=== PATIENT | female | born 1945 | race Caucasian/White ===

== ENCOUNTER → 2017-08-26 | Day surgery (SDC) | payer MEDICARE, BC ==
[2017-08-24 09:40] VITALS: BMI 27.4
[~2017-08-26] MED LIST: EPINEPHrine 1 MG/ML 1 ML AMP SQ ONE; LACTATED RINGERS 1,000 ML IV SCH; LIDOCAINE 1% 20 ML VIAL (10MG/ML) FOR IV START INTRADERMA ONE; MIDAZOLAM 2 MG/2 ML VIAL IV PRN; MIDAZOLAM 2 MG/2 ML VIAL ONE; OFLOXACIN 0.3% OPHTH DROPS 5 ML BOTTLE LEFT EAR ONE; PROPOFOL 10 MG/ML 20 ML VIAL IV ONE; Pre Op ABX Message 1 EACH MISC MISCELLANE ONE; fentaNYL (PF) 50 MCG/ML 2 ML AMP IV PRN
--- NOTE | 2017-08-26 06:15 | HP ---
HISTORY AND PHYSICAL CHIEF COMPLAINT: Fluid in the left ear. HISTORY OF PRESENT ILLNESS: This patient is a 71-year-old female who was originally seen in my office complaining of having a plugged sensation in her left ear. At the time that she was seen in my office, the patient was complaining having pressure in the left ear as well as pressure in her sinuses. Clinical examination of the ears revealed that the left middle ear space contained fluid. The patient was placed on a course of oral antibiotics and oral steroids and was seen back approximately 2 weeks later. At that time, she stated that the left ear still felt plugged. She was given another 10-day course of oral steroids and asked to return to the office. At the time that the patient returned to the office, she stated that the ear had not improved and clinical examination revealed that the patient had left chronic serous otitis media so-called glue ear. It was recommended that she undergo a left myringotomy with insertion of a ventilation tube under IV sedation with MAC or general anesthesia depending upon the anesthesia department's preference. PAST MEDICAL HISTORY: Past medical history reveals that the patient has allergies to PENICILLIN, SULFA and CODEINE. MEDICATIONS: Current medications include Synthroid, Travatan, Simbrinza, Dyazide, atorvastatin, Nasonex, Advair, and Claritin. REVIEW OF SYSTEMS: Cardiovascular is positive for hypertension. Respiratory is positive for asthma. Gastrointestinal is negative. Metabolic endocrine is positive for hypercholesterolemia and hypothyroidism. Special senses is positive for glaucoma. The remainder of the review of systems is essentially unremarkable. PHYSICAL EXAMINATION: This patient is a very pleasant 71-year-old female who was alert and cooperative. HEENT EXAMINATION: The patient is normocephalic. Right tympanic membrane is normal. Right middle ear space is free of any fluid or infection. The left tympanic membrane is dull with evidence of fluid in the left middle ear space. Pupils are equal, round, react to light and accommodation. Extraocular movements within normal limits. Intranasal examination reveals moderate to severe septal deviation with compensatory hypertrophy of the inferior turbinates and a moderate amount of thick mucus on the mucous membranes and draining down the posterior pharynx. Examination of oropharynx, palpation of the neck, cranial nerves 2 through 12 and the remainder of the head and neck exam are within normal limits. CHEST/CARDIOVASCULAR: Both lung pittman are clear to percussion and auscultation. The patient is in regular sinus rhythm S1, S2 are present without evidence any murmurs, S3s or S4s. Peripheral pulses are bilaterally symmetrical and within normal limits. ABDOMEN: There is no evidence the masses, megaly or tenderness. The abdomen is soft. Skin is unremarkable. Musculoskeletal and neurological are within normal limits. PELVIC/RECTAL EXAM; The pelvic rectal exam is deferred at this time because the patient has this done on a regular basis at her family physician's office. The remainder of the physical exam is essentially unremarkable. IMPRESSION: Chronic left serous otitis media. PLAN: The patient is scheduled to undergo a left myringotomy with insertion of ventilation tube under IV sedation or general anesthesia depending upon the anesthesia department's preference. ATTENTION RNS IN THE PRE-SURGICAL AREA: I have not ordered any pre-surgical prophylactic antibiotics for this patient. If the pharmacy department sends any pre- surgical prophylactic antibiotics to the pre-surgical area for this patient, please cancel that order and return the medication to the pharmacy department. Also please make sure that the patient's account is credited appropriately. I have discussed the risks, benefits and alternative therapies for the above-mentioned procedure and for both sedation/analgesia as well as necessary blood product administration, if indicated, as they pertain to this patient. The patient has indicated his or her understanding and acceptance of the risks and procedures discussed. MMODL / IJN: [id number] /
[2017-08-26 09:04] VITALS: TEMP 97.9
[2017-08-26 11:34] VITALS: BP 132/62; PULSE 82; RESP 16
--- NOTE | 2017-08-28 20:33 | OP ---
OPERATIVE REPORT DATE OF SURGERY: 08/26/2017 PREOP DIAGNOSIS: Chronic left serous otitis media with occluded retained ventilation tube. POSTOPERATIVE DIAGNOSIS: Chronic left serous otitis media with occluded retained ventilation tube. ANESTHESIA: IV sedation with MAC. OPERATIVE PROCEDURE: Left myringotomy with insertion of a Fried type ventilation tube. OPERATING SURGEON: Dr. Betancur. COMPLICATIONS: None. PROCEDURE: The patient was placed on the operating table in supine position. After uneventful induction and IV sedation, satisfactory sedation was obtained. Next the patient's left ear was prepped in the usual and customary fashion. Next, using the Zeiss operating microscope and a #2 aural speculum, the left external auditory canal was cleansed of all wax and debris. The procedure was somewhat difficult because the patient's left external auditory canal was quite stenotic, therefore necessitating the use of a much smaller speculum much small aural speculum in usual. Inspection revealed that the old ventilation tube was present, but it was completely occluded with cerumen. Therefore, using the myringotomy knife. This tube was eventually freed from the surrounding tympanic membrane. Next, using a pair of alligator forceps, the old occluded ventilation tube was removed without incident. The middle ear space was suctioned free of all fluid. Next using the myringotomy knife, the residual perforation was enlarged in the anterior inferior quadrant of the left tympanic membrane. Next, a Fried type ventilation tube was carefully inserted in the usual and customary fashion. Again, this procedure took a little bit longer than normal because of the fact that all of the operation was carried out through a much smaller aural speculum, namely #2 instead of the usual #3. The tube was put in position in the usual fashion. The middle ear space was once again suctioned to make sure that all the fluid had been removed. The patient's left external auditory canal was filled with approximately 10 drops of Floxin and otic solution. At this point, the procedure was terminated. There were no intraoperative complications. The patient tolerated the procedure well and was returned to the recovery room in satisfactory condition. MMODL / IJN: [id number] /
== END ==
LOC: OR 08:36
PROVIDERS: ATTEND Otolaryngology
DX: H65.22 Chronic serous otitis media, left ear (principal); T85.9XXA Unspecified complication of internal prosthetic device, implant and graft, initial encounter; Q16.1 Congenital absence, atresia and stricture of auditory canal (external); I10 Essential (primary) hypertension; J45.909 Unspecified asthma, uncomplicated; E78.00 Pure hypercholesterolemia, unspecified; E03.9 Hypothyroidism, unspecified; E78.5 Hyperlipidemia, unspecified; M06.9 Rheumatoid arthritis, unspecified; H40.9 Unspecified glaucoma; Z79.82 Long term (current) use of aspirin; Z79.51 Long term (current) use of inhaled steroids; Z79.899 Other long term (current) drug therapy; Z88.5 Allergy status to narcotic agent; Z88.0 Allergy status to penicillin; Z88.2 Allergy status to sulfonamides; Z88.1 Allergy status to other antibiotic agents
CPT/HCPCS: 69436; J2250; J2704

== ENCOUNTER → 2017-11-10 | Outpatient (CLI) | payer MEDICARE, BC ==
--- NOTE | 2017-11-10 16:13 | CT ---
EXAMINATION TYPE: CT iac wo con DATE OF EXAM: 11/10/2017 COMPARISON: Correlation CT brain 04/24/2017 HISTORY: 72-year-old female with left side hearing loss and mastoiditis. CT DLP: 257 mGycm Automated exposure control for dose reduction was used. TECHNIQUE: Contiguous high-resolution axial scanning of the temporal bones without IV contrast. Nelda nal reformatted images are obtained. FINDINGS: There is no abnormality of visualized intracranial structures by thin section noncontrast CT. The external auditory canals are clear. There is a myringotomy tube within the left tympanic membrane . Minimal thickening of the tympanic membrane likely postinflammatory. The middle ear cavities are well pneumatized with interval clearance as compared to 04/24/2017. The mastoid air cells are well pneumatized. There is no abnormality of middle ear ossicles. The round and oval windows are normal. There is no abnormality of bony labyrinths. The vestibular aqueduct are well visualized. The facial nerve canal is normal bilaterally. The internal auditory canal and meati are symmetrical bilaterally. There is no evidence of fractures. Severe chronic opacification of the bilateral maxillary sinuses as well as the ethmoid and sphenoid s inuses with reactive will-osteogenesis of the sinus melton. Old, minimally depressed left-sided nasal b one fracture. Reformatted images confirm above findings. IMPRESSION: 1. Minimally thickened left tympanic membrane likely postinflammatory in etiology. Left-sided myringo marin tube is in place. 2. Interval clearing of the left middle ear effusion. The mastoid air cells remain clear. 3. 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
== END | disposition home or self-care (01) ==
LOC: RADCTMAIN 15:17
PROVIDERS: ATTEND Otolaryngology
DX: H93.8X2 Other specified disorders of left ear (principal); Z98.890 Other specified postprocedural states
CPT/HCPCS: 70480

== ENCOUNTER 2018-04-27 10:21 | Day surgery (SDC) | payer MEDICARE, BC ==
[2018-04-26 10:00] VITALS: BMI 26.6
[~2018-04-27 10:21] MED LIST changes: +CLINDAMYCIN 600 MG in DEXTROSE 5% IN WATER 50 ML IVPB ONE; +DEXAMETHASONE SOD PHOSPHATE 10 MG/ML 1 ML VIAL IV ONE; +DEXAMETHASONE SOD PHOSPHATE 4 MG/ML 1 ML VIAL IV ONE; -EPINEPHrine 1 MG/ML 1 ML AMP SQ ONE; +FAMOTIDINE 20 MG/2 ML VIAL IV ONE; +HYDROmorphone 1 MG/ML 1 ML SYRINGE IVP PRN; -LIDOCAINE 1% 20 ML VIAL (10MG/ML) FOR IV START INTRADERMA ONE; +LIDOCAINE 1% 20 ML VIAL (10MG/ML) FOR IV START INTRADERMA PRN; -MIDAZOLAM 2 MG/2 ML VIAL ONE; -OFLOXACIN 0.3% OPHTH DROPS 5 ML BOTTLE LEFT EAR ONE; +ONDANSETRON 4 MG/2 ML VIAL IVP ONE; -PROPOFOL 10 MG/ML 20 ML VIAL IV ONE; -Pre Op ABX Message 1 EACH MISC MISCELLANE ONE; +SCOPOLAMINE 1.5MG/72HR PATCH TRANSDERM ONE; -fentaNYL (PF) 50 MCG/ML 2 ML AMP IV PRN
[2018-04-27 11:13] VITALS: RESP 16
[2018-04-27] MEDS: OXYMETAZOLINE 0.05% NASL SPRAY 1 SPRAY BOTTLE NASAL ONE ×4 (11:35→11:51)
[2018-04-27] MEDS ORDERED: LIDOCAINE 1% INJ 10MG/ML (20 ML MDV) ONE (12:03)
[2018-04-27] MEDS ORDERED: MIDAZOLAM 2 MG/2 ML VIAL ONE (12:03)
[2018-04-27] MEDS ORDERED: PROPOFOL 10 MG/ML 20 ML VIAL IV ONE (12:03)
[2018-04-27] MEDS ORDERED: fentaNYL (PF) 50 MCG/ML 2 ML AMP ONE (12:03)
[2018-04-27] MEDS ORDERED: LIDOCAINE 1%-EPI 1:100,000 20 ML VIAL SQ ONE (12:23)
[2018-04-27] MEDS ORDERED: CIPROFLOXACIN-DEXAMETH 0.3-0.1% DROPS 7.5 ML BTL BOTH EARS ONE (12:23)
[2018-04-27] MEDS ORDERED: LIDOCAINE 0.5%-EPI 1:200,000 50 ML VIAL SQ ONE (12:24)
[2018-04-27] MEDS ORDERED: OXYMETAZOLINE 0.05% NASL SPRAY 1 SPRAY BOTTLE MISCELLANE ONE (12:26)
--- NOTE | 2018-04-27 12:53 | P.OP ---
Date of Procedure: 04/27/18 Preoperative Diagnosis: Eustachian tube dysfunction Retained tube left ear with TM perforation Bilateral cerumen impaction Bilateral nasal inferior turbinate hypertrophy Postoperative Diagnosis: same Procedure(s) Performed: Left direct microscopic myringotomy with tube removal and myringoplasty Bilateral cerumen removal Bilateral balloon eustachiantuboplasty Bilteral submucosal resection of the inferior turbinates. Anesthesia: GETA Surgeon: Antoni Knapp Estimated Blood Loss (ml): 0 Pathology: none sent Condition: stable Disposition: PACU Indications for Procedure: This patient complains of persistent ear pain pressure and fullness and hearing loss. Patient was found have a persistent eustachian tube dysfunction cerumen impaction retained tube on the left side area patient has failed conservative medical therapy and surgical correction was recommended. All risks, benefits, and alternative therapies regarding these procedures were discussed. Consent was obtained and all questions were answered. Operative Findings: Patient was found to have cerumen impaction bilaterally which was removed she had a retained tube on the left side which after removal demonstrated a tympanic membrane perforation that was patched. Eustachian tube orifice was edematous and swollen. Large posterior inferior turbinates were noted Description of Procedure: This patient was taken to the operative room and placed in the supine position. A general inhalation anesthetic was administered to the patient and an LMA was inserted. Both ears were visualized with a 250 mm Zeiss microscope and cerumen and epithelial debris was removed from the external auditory canals bilaterally. Cerumen impaction was removed bilaterally. The left drum demonstrated a retained tube with a large amount of thickening to the tympanic membrane. Myringotomy was performed to was removed and this left a large perforation. We prepped the drumhead and utilize a bio design graft to patch the whole. The whole was patched and the patient tolerated this well. Attention was then paid to the nose where the eustachian tube orifice was demonstrated to be obstructive and swollen. With use of a accalrent system and ballooned eustachian tube balloon was performed bilaterally usual fashion. After the eustachian tube was ballooned in the systematic fashion as recommended. Attention was then paid to the nose where the inferior turbinates were evaluated and a submucosal resection was performed at the eustachian tube orifice region. Minimal bleeding was encountered. To summarize, with ears had cerumen impaction removed. A myringotomy was performed on the left side were a tube was removed and the whole was patched after the drumhead was prepped. Bilateral balloon eustachian tuboplasty's were performed and turbinates underwent a submucosal resection at the orifice of the eustachian tube. The patient tolerated this well and follow-up will be in the office in 1 week. Patient is to contact me if any problems should arise.
[2018-04-27 12:58] VITALS: TEMP 97
[2018-04-27 14:16] VITALS: BP 151/74; PULSE 80
--- NOTE | 2018-05-02 01:28 | CDI ---
Outpatient Documentation Clarification Form Date: 05/02/2018 CDS/Private Tutor Name: Romeo Machado Phone: If any questions, call Krystal Keenan Research Food Technologist at [phone] Patient Name: Micaela Guerrero Admit Date: 04/27/2018 Discharge Date: 04/27/2018 ATTENTION: The [facility] Coding Staff appreciate your assistance in clarifying documentation. Please respond to the clarification below the line at the bottom and electronically sign. The [facility] Coding staff will review the response and follow-up if needed. Please note: Queries are made part of the Legal Health Record. If you have any questions, please contact the Research Food Technologist. Dear Antoni Davis As per your Operative note documentation patient has bilateral cerumen impaction , it is not documented in description of procedure for method of cerumen impaction removed. Please clarify method used for impacted cerumen removal. 1. Using instruments (Wax Curettes, Wire loops, forceps) ___Used alligator forceps and suction 2. Using lavage or suction Thank you for your kind consideration. MTDD
== END 2018-04-27 14:29 | disposition home or self-care (01) ==
LOC: OR 10:21
PROVIDERS: ATTEND Otolaryngology
DX: H72.92 Unspecified perforation of tympanic membrane, left ear (principal); H61.23 Impacted cerumen, bilateral; J34.3 Hypertrophy of nasal turbinates; H69.90 Unspecified Eustachian tube disorder, unspecified ear; J45.909 Unspecified asthma, uncomplicated; E78.00 Pure hypercholesterolemia, unspecified; J32.9 Chronic sinusitis, unspecified; M06.9 Rheumatoid arthritis, unspecified; E07.9 Disorder of thyroid, unspecified; Z88.5 Allergy status to narcotic agent; Z88.2 Allergy status to sulfonamides; Z88.0 Allergy status to penicillin; Z82.49 Family history of ischemic heart disease and other diseases of the circulatory system; Z87.891 Personal history of nicotine dependence
CPT/HCPCS: 30140; 69620; 69210; 69799; C1763; J2250; J1100; J2405; J2001; J3010; J2704

== ENCOUNTER → 2019-02-13 | Outpatient (CLI) | payer MEDICARE, BC ==
--- NOTE | 2019-02-14 11:57 | MM ---
Reason for exam: screening (asymptomatic). Last mammogram was performed 1 year ago. History: Family history of breast cancer in mother at age 83. Benign excisional biopsy of the left breast. Physical Findings: A clinical breast exam by your physician is recommended on an annual basis and results should be correlated with mammographic findings. MG 3D Screening Mammo W/Cad Bilateral CC and MLO view(s) were taken. Prior study comparison: February 03, 2018, mammogram. January 26, 2017, mammogram. The breast tissue is heterogeneously dense. This may lower the sensitivity of mammography. Stable benign calcifications. There is no discrete abnormality. No significant changes when compared with prior studies. ASSESSMENT: Benign, BI-RAD 2 RECOMMENDATION: Routine screening mammogram of both breasts in 1 year.
== END | disposition home or self-care (01) ==
LOC: RADMAMWWP 11:51
PROVIDERS: ATTEND Obstetrics & Gynecology
DX: Z12.31 Encounter for screening mammogram for malignant neoplasm of breast (principal)
CPT/HCPCS: 77063; 77067

== ENCOUNTER → 2020-01-25 | Day surgery (SDC) | payer MEDICARE, BC ==
[2020-01-23 10:52] VITALS: BMI 29.2
[~2020-01-25] MED LIST changes: -CLINDAMYCIN 600 MG in DEXTROSE 5% IN WATER 50 ML IVPB ONE; -DEXAMETHASONE SOD PHOSPHATE 10 MG/ML 1 ML VIAL IV ONE; -DEXAMETHASONE SOD PHOSPHATE 4 MG/ML 1 ML VIAL IV ONE; -FAMOTIDINE 20 MG/2 ML VIAL IV ONE; -HYDROmorphone 1 MG/ML 1 ML SYRINGE IVP PRN; +LIDOCAINE 1% (10MG/ML) FOR IV START INTRADERMA ONE; +LIDOCAINE 1% (10MG/ML) FOR IV START INTRADERMA PRN; -LIDOCAINE 1% 20 ML VIAL (10MG/ML) FOR IV START INTRADERMA PRN; -MIDAZOLAM 2 MG/2 ML VIAL IV PRN; -ONDANSETRON 4 MG/2 ML VIAL IVP ONE; +PROPOFOL 10 MG/ML 20 ML VIAL IV ONE; -SCOPOLAMINE 1.5MG/72HR PATCH TRANSDERM ONE
[2020-01-25 08:32] VITALS: TEMP 97
--- NOTE | 2020-01-25 09:24 | P.PCN ---
Date of Procedure: 01/25/20 Procedure(s) Performed: BRIEF HISTORY: Patient is a 74-year-old pleasant white female scheduled for an elective colonoscopy as a part of screening for colorectal neoplasia. PROCEDURE PERFORMED: Colonoscopy with snare polypectomy. PREOPERATIVE DIAGNOSIS: Screening for colon cancer. IV sedation per Anesthesia. PROCEDURE: After informed consent was obtained, the patient, was brought into the endoscopy unit. IV sedation was administered by Anesthesia under continuous monitoring. Digital rectal examination was normal. Initially the Olympus CF-160 flexible video colonoscope was then inserted in the rectum, gradually advanced into the cecum without any difficulty. Careful examination was performed as the scope was gradually being withdrawn. Ileocecal valve and the appendiceal orifice were visualized and appeared normal. Prep was excellent. Mucosa of the cecum, ascending colon, appeared normal. The transverse colon there was a 5 mm polyp removed by snare polypectomy. In the descending colon there was another 5 mm polyp removed by snare polypectomy. Rest of the transverse colon, descending colon, sigmoid colon, and rectum appeared normal. In the rectum there was a 1 cm polyp removed by snare polypectomy. Retroflexion was performed in the rectum and no lesions were seen. The patient tolerated the procedure well. IMPRESSION: 5 mm transverse colon polyp status post polypectomy 5 mm ascending colon polyp status post polypectomy 1 cm rectal polyp status post polypectomy RECOMMENDATIONS: Findings of this examination were discussed with the patient as well as a family. She was advised to follow with the biopsy results. If the biopsy shows an adenoma she can have a repeat colonoscopy in 3 years.
[2020-01-25 09:37] VITALS: BP 154/88; PULSE 67; RESP 16
== END ==
LOC: ORWHC2ENDO 07:51
PROVIDERS: ATTEND Internal Medicine Gastroenterology
DX: Z12.11 Encounter for screening for malignant neoplasm of colon (principal); D12.3 Benign neoplasm of transverse colon; D12.4 Benign neoplasm of descending colon; D12.8 Benign neoplasm of rectum; Z86.010 Personal history of colon polyps; I10 Essential (primary) hypertension; E78.5 Hyperlipidemia, unspecified; J45.909 Unspecified asthma, uncomplicated; E07.9 Disorder of thyroid, unspecified; M06.9 Rheumatoid arthritis, unspecified; Z88.0 Allergy status to penicillin; Z88.2 Allergy status to sulfonamides; Z88.5 Allergy status to narcotic agent; Z79.890 Hormone replacement therapy; Z79.899 Other long term (current) drug therapy
CPT/HCPCS: 88305; 45385; J2704

== ENCOUNTER → 2020-04-29 | Outpatient (CLI) | payer MEDICARE, BC ==
--- NOTE | 2020-04-29 15:42 | BD ---
EXAMINATION TYPE: Axial Bone Density DATE OF EXAM: 04/29/2020 COMPARISON: NONE CLINICAL HISTORY: Height: 64 IN Weight: 173 LBS FRAX RISK QUESTIONS: Secondary Osteoporosis: Rheumatoid Arthritis: YES RISK FACTORS HISTORY OF: History of Wrist Fracture: LT WRIST FX AGE 1 Active: YES Postmenopausal woman: AGE 55 Take estrogen and/or progesterone medications: NOT NOW How long: TOOK AGE [age] MEDICATIONS: Thyroid Medications: YES Which medication: Synthroid How Lon YEARS Additional Medications: CALCIUM, VIT D, SYNTHROID, BREO INHALER, ATORVASTATIN, ALLERGY MEDS, FOLIC AC ID, METHOTREXATE ONCE PER WEEK, EYE DROPS FOR GLAUCOMA EXAM MEASUREMENTS: Bone mineral densitometry was performed using the Boni System. Bone mineral density as measured about the Lumbar spine is: ----- L1-L4(G/cm2): 1.306 T Score Values are as follows: ----- L2: 0.4 ----- L3: 1.2 ----- L4: 1.4 ----- L1-L4: 1.1 Bone mineral density BASELINE Bone mineral density about the R hip (g/cm2): 0.798 Bone mineral density about the L hip (g/cm2): 0.842 T Score values are as follows: -----R Neck: -1.7 -----L Neck: -1.4 -----R Total: -0.9 -----L Total: -0.3 Bone mineral density BASELINE IMPRESSION: Osteopenia (T Score between -2.5 and -1). There is slightly increased risk of fracture and the patient may be considered for treatment. Re-Screen 2-5 years. NOTE: T-SCORE=SD OF THE YOUNG ADULT MEAN.
--- NOTE | 2020-04-30 11:24 | MM ---
Reason for exam: screening (asymptomatic). Last mammogram was performed 1 year and 2 months ago. History: Patient is postmenopausal. Family history of breast cancer in mother at age 83. Benign excisional biopsy of the left breast. Physical Findings: A clinical breast exam by your physician is recommended on an annual basis and results should be correlated with mammographic findings. MG 3D Screening Mammo W/Cad Bilateral CC and MLO view(s) were taken. Prior study comparison: February 13, 2019, bilateral MG 3d screening mammo w/cad. February 03, 2018, mammogram. The breast tissue is heterogeneously dense. This may lower the sensitivity of mammography. Stable scattered calcifications. There is no discrete abnormality. No significant changes when compared with prior studies. ASSESSMENT: Benign, BI-RAD 2 RECOMMENDATION: Routine screening mammogram of both breasts in 1 year.
== END | disposition home or self-care (01) ==
LOC: RADMAMWWP 12:36
PROVIDERS: ATTEND Obstetrics & Gynecology
DX: Z12.31 Encounter for screening mammogram for malignant neoplasm of breast (principal); M85.80 Other specified disorders of bone density and structure, unspecified site
CPT/HCPCS: 77063; 77067; 77080

== ENCOUNTER → 2021-05-11 | Outpatient (CLI) | payer MEDICARE ==
--- NOTE | 2021-05-13 10:36 | MM ---
Reason for exam: screening (asymptomatic). Last mammogram was performed 1 year ago. History: Patient is postmenopausal. Family history of breast cancer in mother at age 83. Benign excisional biopsy of the left breast. Physical Findings: A clinical breast exam by your physician is recommended on an annual basis and results should be correlated with mammographic findings. MG 3D Screening Mammo W/Cad Bilateral CC and MLO view(s) were taken. Prior study comparison: April 29, 2020, bilateral MG 3d screening mammo w/cad. February 13, 2019, bilateral MG 3d screening mammo w/cad. The breast tissue is heterogeneously dense. This may lower the sensitivity of mammography. There is chronic nodularity in the left breast. Progressive grouped microcalcifications anterior upper outer quadrant left breast. Magnification views recommended. ASSESSMENT: Incomplete: need additional imaging evaluation, BI-RAD 0 RECOMMENDATION: Special view mammogram of the left breast. (magnification) [facility] will attempt to contact patient to return for supplemental views.
== END | disposition home or self-care (01) ==
LOC: RADMAMWWP 15:42
PROVIDERS: ATTEND Obstetrics & Gynecology
DX: Z12.31 Encounter for screening mammogram for malignant neoplasm of breast (principal)
CPT/HCPCS: 77063; 77067

== ENCOUNTER → 2021-08-04 | Outpatient (CLI) | payer MEDICARE ==
--- NOTE | 2021-08-04 11:55 | MM ---
Reason for exam: additional evaluation requested from abnormal screening. Last mammogram was performed 3 months ago. History: Patient is postmenopausal. Family history of breast cancer in mother at age 83. Benign excisional biopsy of the left breast. Physical Findings: A clinical breast exam by your physician is recommended on an annual basis and results should be correlated with mammographic findings. MG 3D Work Up W/Cad LT Spot compression CC, spot compression LM, CC with magnification, LM with magnification, and LM view(s) were taken of the left breast. Prior study comparison: May 11, 2021, bilateral MG 3d screening mammo w/cad. April 29, 2020, bilateral MG 3d screening mammo w/cad. The breast tissue is heterogeneously dense. This may lower the sensitivity of mammography. Finding: There are typically benign dystrophic, grouped/clustered calcifications in the upper outer quadrant, anterior, middle position of the left breast persists on additional views but benign morphology. ASSESSMENT: Benign, BI-RAD 2 RECOMMENDATION: Return to routine screening mammogram schedule for both breasts. Back on schedule.
== END | disposition home or self-care (01) ==
LOC: RADMAMWWP 10:28
PROVIDERS: ATTEND Obstetrics & Gynecology
DX: R92.8 Other abnormal and inconclusive findings on diagnostic imaging of breast (principal)
CPT/HCPCS: 77065; G0279; 77061

== ENCOUNTER → 2021-09-14 | Outpatient (CLI) | payer MEDICARE ==
[2021-09-14 16:27] LABS: African American GFR (CKD) 84 (>60 ml/min/1.73 sqM); Blood Urea Nitrogen 14 mg/dL (7-17); Non-African American GFR(CKD) 73 (>60 ml/min/1.73 sqM)
[2021-09-14 17:07] LABS: HCT 45.5 % (34.0-46.0); HGB 13.8 gm/dL (11.4-16.0); MCH 31.8 pg (25.0-35.0); MCHC 30.4 g/dL (31.0-37.0); MCV 104.8 fL (80.0-100.0); Macrocytosis Moderate; Mean Platelet Volume 8.1; Platelet Count 315 k/uL (150-450); RBC 4.34 m/uL (3.80-5.40); RDW 14.6 % (11.5-15.5); WBC 7.6 k/uL (3.8-10.6)
[2021-09-14 17:14] LABS: ALT 23 U/L (4-34); AST 44 U/L (14-36); Albumin 4.2 g/dL (3.5-5.0); Albumin/Globulin Ratio 0.9; Alkaline Phosphatase 90 U/L (38-126); Anion Gap 5 mmol/L; Calcium 9.1 mg/dL (8.4-10.2); Carbon Dioxide 29 mmol/L (22-30); Chloride 105 mmol/L (98-107); Globulin 4.8 g/dL; Glucose 87 mg/dL (74-99); Magnesium 2.2 mg/dL (1.6-2.3); Potassium 4.2 mmol/L (3.5-5.1); Sodium 139 mmol/L (137-145); Total Bilirubin 0.9 mg/dL (0.2-1.3)
[2021-09-16 15:04] LABS: Free Kappa Lt Chain Qnt, Serum 65.11 mg/dL (0.33-1.94); Free Lambda Lt Chain Qnt, Seru 1.72 mg/dL (0.57-2.63)
== END | disposition home or self-care (01) ==
LOC: RADCTMAIN 15:05
PROVIDERS: ATTEND Internal Medicine Medical Oncology
DX: R91.1 Solitary pulmonary nodule (principal); J45.909 Unspecified asthma, uncomplicated; H40.9 Unspecified glaucoma; M10.9 Gout, unspecified
CPT/HCPCS: 80053; 83735; 85027; 85810; 83883; 71260; 74177; Q9967

== ENCOUNTER → 2022-05-12 | Outpatient (CLI) | payer MEDICARE ==
--- NOTE | 2022-05-13 15:11 | MM ---
Reason for Exam: Screening (asymptomatic). Last screening mammogram was performed 12 month(s) ago. Patient History: Menarche at age 11. First Full-Term at age 23. Postmenopausal. Patient has history of breast feeding. Benign Excisional Biopsy on the left side. Mother had breast cancer, age 83. Risk Values: Fiorella 5 year model risk: 4.0%. NCI Lifetime model risk: 7.1%. Prior Study Comparison: 01/26/2017 Screening Mammogram, Unknown. 02/03/2018 Screening Mammogram, Unknown. 02/13/2019 Bilateral Screening Mammogram, [facility]. 04/29/2020 Bilateral Screening Mammogram, [facility]. 05/11/2021 Bilateral Screening Mammogram, [facility]. 08/04/2021 Left Diagnostic Mammogram, [facility]. Tissue Density: The breast tissue is heterogeneously dense. This may lower the sensitivity of mammography. Findings: Analyzed By CAD. There is a focal asymmetry within the inferior left breast. Stable coarse calcifications within the upper left breast. No significant interval changes are evident. No suspicious groups of microcalcifications, spiculated or lobular masses, architectural distortion or other secondary signs of malignancy are mammographically apparent. Overall Assessment: Benign, BI-RAD 2 Management: Screening Mammogram of both breasts in 1 year. A negative mammogram report should not preclude additional follow up of suspicious palpable abnormalities. Patient should continue monthly self breast exam. A clinical breast exam by your physician is recommended on an annual basis and results should be correlated with mammographic findings. Electronically signed and approved by: Douglas Bae D.O. Radiologis
== END | disposition home or self-care (01) ==
LOC: RADMAMWWP 11:00
PROVIDERS: ATTEND Obstetrics & Gynecology
DX: Z12.31 Encounter for screening mammogram for malignant neoplasm of breast (principal); Z80.3 Family history of malignant neoplasm of breast; Z78.0 Asymptomatic menopausal state; Z98.890 Other specified postprocedural states
CPT/HCPCS: 77063; 77067

== ENCOUNTER → 2023-08-15 | Outpatient (CLI) | payer MEDICARE ==
--- NOTE | 2023-08-16 11:23 | BD ---
EXAMINATION TYPE: Axial Bone Density DATE OF EXAM: 08/15/2023 CLINICAL HISTORY: 77 years old Female. ICD-10 CODE: M85.88 Bone disorder Height: 64 Weight: 175.0 FRAX RISK QUESTIONS: Alcohol (3 or more units per day): yes Family History (Parent hip fracture): no Glucocorticoids (More than 3mos): no History of Fracture in Adulthood: no Secondary Osteoporosis: 1. Type 1 Diabetes: no 2. Hyperthyroidism: no 3. Menopause before 45: no 4. Malnutrition: no 5. Chronic liver disease: no Rheumatoid Arthritis: yes Current Tobacco Use: no RISK FACTORS HISTORY OF: Hip Fracture (Right/Left): no Spine Fracture: no History of Wrist Fracture: Lt age age 1 Surgery to Spine/Hip(right/left)/Wrist (right/left): no MEDICATIONS: Thyroid Medications: Levothyroxine How Long: past 54 years Osteoporosis Medications: no EXAM MEASUREMENTS: Bone mineral densitometry was performed using the [employer] System. Bone mineral density as measured about the Lumbar spine is: ----- L1-L4(G/cm2): 1.268 T Score Values are as follows: ----- L1: 0.6 ----- L2: -0.1 ----- L3: 1.1 ----- L4: 1.0 ----- L1-L4: 0.7 Z Score Values are as follows: ----- L1: 2.0 ----- L2: 1.2 ----- L3: 2.5 ----- L4: 2.4 ----- L1-L4: 2.1 Bone mineral density has: decreased -2.9 % since study of: 04/29/2020 Bone mineral density about the R hip (g/cm2): 0.889 Bone mineral density about the L hip (g/cm2): 0.964 T Score values are as follows: -----R Neck: -2.2 -----L Neck: -1.4 -----R Total: -0.9 -----L Total: -0.3 Z Score values are as follows: -----R Neck: -0.4 -----L Neck: 0.5 -----R Total: 0.7 -----L Total: 1.3 Bone mineral density has: decreased -0.4 % since study of: 04/29/2020 FRAX%s: The graph provided illustrates a 26.7% chance for a major osteoporotic fx and a 11.0% chance for the hips probability for fx in 10 years time. IMPRESSION: Normal (Values between +1 and -1 indicate normal bone mass). Consider repeating this study in 5 year s or sooner if there is some new clinical indication. NOTE: T-SCORE=SD OF THE YOUNG ADULT MEAN.
--- NOTE | 2023-08-16 14:22 | MM ---
Reason for Exam: Screening (asymptomatic). Last mammogram was performed 1 year(s) and 4 month(s) ago. Patient History: Menarche at age 11. First Full-Term at age 23. Postmenopausal. Patient has history of breast feeding. Benign Excisional Biopsy on the left side. Mother had breast cancer, age 83. Risk Values: Fiorella 5 year model risk: 3.9%. NCI Lifetime model risk: 6.5%. Prior Study Comparison: 05/11/2021 Bilateral Screening Mammogram, [facility]. 08/04/2021 Left Diagnostic Mammogram, [facility]. 05/12/2022 Bilateral MG 3D screening mammo w/cad, [facility]. Tissue Density: There are scattered areas of fibroglandular density. Findings: Analyzed By CAD. Right breast: There is no suspicious group of microcalcifications or new suspicious mass. Left breast: There is no suspicious group of microcalcifications or new suspicious mass. Benign-appearing calcifications left breast. Overall Assessment: Benign, BI-RAD 2 Management: Screening Mammogram of both breasts in [address] [facility] will attempt to contact patient to return for supplemental views and ultrasound if indicated. Patient should continue monthly self-breast exams. A clinical breast exam by your physician is recommended on an annual basis. This exam should not preclude additional follow-up of suspicious palpable abnormalities. Note on Fiorella scores and lifetime risk: 1. A Fiorella score greater than 3% is considered moderate risk. If this is the case, consider specialist referral to assess eligibility for a risk reducing agent. 2. If overall lifetime risk for the development of breast cancer is 20% or higher, the patient may qualify for future screening with alternating mammogram and breast MRI. Electronically signed and approved by: Andrade Chase DO
== END | disposition home or self-care (01) ==
LOC: RADBDWWP 14:59
PROVIDERS: ATTEND Obstetrics & Gynecology
DX: Z12.31 Encounter for screening mammogram for malignant neoplasm of breast (principal); M85.89 Other specified disorders of bone density and structure, multiple sites; Z80.3 Family history of malignant neoplasm of breast; Z78.0 Asymptomatic menopausal state
CPT/HCPCS: 77063; 77067; 77080

== ENCOUNTER 2024-04-10 14:41 | Emergency (ER) | payer MEDICARE ==
--- NOTE | 2024-04-10 16:14 | ED ---
Abdominal Pain HPI - General Chief Complaint: Abdominal Pain Stated Complaint: ABDOMINAL PAIN Time Seen by Provider: 04/10/24 14:52 Source: patient Mode of arrival: ambulatory Limitations: no limitations - History of Present Illness Initial Comments: This patient is an 78-year-old woman who presents to evaluation of right upper quadrant pain. She states that it had come on on Tuesday, mid. The pain has been more or less constant. She notes that it is a little bit worse if she takes a deep breath. No other worsening or relieving factors noted. She states it does not change with eating or drinking. The patient had not noted fever or chills. No nausea or vomiting. No change in urination or bowel movements. When the pain persisted, she went to an urgent care and was referred here for further evaluation. MD Complaint: abdominal pain Onset/Timin -: days(s) Location: RUQ Radiation: none Migration to: no migration Severity: moderate Quality: dull Consistency: constant Improves With: nothing Worsens With: other (Inspiration) Associated Symptoms: denies other symptoms - Related Data Home Medications Medication Instructions Recorded Confirmed Atorvastatin [Lipitor] 20 mg PO HS 04/24/17 02/08/23 Folic Acid 1 mg PO DAILY 04/24/17 02/08/23 metHOTREXate sodium [Methotrexate] 20 mg PO TU 04/24/17 02/08/23 Ascorbic Acid [Vitamin C] 1,000 mg PO DAILY 08/24/17 02/08/23 Cholecalciferol [Vitamin D3] 4,000 unit PO DAILY 08/24/17 02/08/23 Cyanocobalamin (Vitamin B-12) 1,000 mcg PO DAILY 08/24/17 02/08/23 [Vitamin B-12] Krill/Om-3/Dha/Epa/Phospho/Ast 350 mg PO DAILY 08/24/17 02/08/23 [Eek-3 Krill Oil 300 mg Sfgl] Multivitamins, Thera [Multivitamin 1 tab PO DAILY 08/24/17 02/08/23 (formulary)] Ubidecarenone [Co Q-10] 300 mg PO DAILY 08/24/17 02/08/23 Fluticasone/Vilanterol [Breo 1 inhalation INHALATION DAILY 04/27/18 02/08/23 Ellipta 200-25 Mcg INH] Brinzolamide/Brimonidine Tart 1 drop RIGHT EYE TID 01/23/20 02/08/23 [Simbrinza 1%-0.2% Eye Drops] Cetirizine HCl [Zyrtec] 10 mg PO DAILY 01/23/20 02/08/23 L.acidoph,Paracasei, B.lactis 1 each PO DAILY 01/23/20 02/08/23 [Probiotic] Levothyroxine Sodium [Synthroid] 100 mcg PO DAILY 01/23/20 02/08/23 Magnesium 200 mg PO DAILY 01/23/20 02/08/23 Timolol 0.5% Ophth Soln [Timoptic 1 drop BOTH EYES BID 01/23/20 02/08/23 0.5% Ophth Soln] Vitamin B Complex 1 each PO DAILY 01/23/20 02/08/23 calcium polycarbophiL [Fibercon] 625 mg PO DAILY 01/23/20 02/08/23 Latanoprost [Latanoprost 0.005%] 1 drop RIGHT EYE HS 02/04/23 02/08/23 Previous Rx's Medication Instructions Recorded Famotidine [Pepcid] 20 mg PO BID #14 tablet 04/10/24 Allergies Allergy/AdvReac Type Severity Reaction Status Date / Time Sulfa (Sulfonamide Allergy Unknown Verified 04/10/24 14:43 Antibiotics) Childhood codeine AdvReac Hallucinati Verified 04/10/24 14:43 ons Penicillins AdvReac Unknown Verified 04/10/24 14:43 Childhood Review of Systems ROS Statement: Those systems with pertinent positive or pertinent negative responses have been documented in the HPI. ROS Other: All systems not noted in ROS Statement are negative. Constitutional: Denies: fever, chills Respiratory: Denies: cough, dyspnea Cardiovascular: Denies: chest pain, palpitations, edema Gastrointestinal: Reports: abdominal pain. Denies: nausea, vomiting, diarrhea, constipation, melena, hematochezia Genitourinary: Denies: dysuria, hematuria Musculoskeletal: Denies: back pain Skin: Denies: rash Neurological: Denies: headache, weakness Psychiatric: Denies: anxiety Past Medical History Past Medical History: Asthma, Eye Disorder, Hyperlipidemia, Hypertension, Rheumatoid Arthritis (RA), Thyroid Disorder Additional Past Medical History / Comment(s): chronic left ear infection , glaucoma, tinnitus, hypothyroidism. History of Any Multi-Drug Resistant Organisms: None Reported Past Surgical History: Section, Joint Replacement, Tonsillectomy Additional Past Surgical History / Comment(s): Bilateral total knee replacement, 2, myringotomy & tube left ear Past Anesthesia/Blood Transfusion Reactions: No Reported Reaction Past Psychological History: No Psychological Hx Reported Smoking Status: Former smoker Past Alcohol Use History: Daily Past Drug Use History: None Reported - Past Family History Father Family Medical History: Cancer, Myocardial Infarction ([place]) Additional Family Medical History / Comment(s): Heart attack at age 65 however lived until 93. Mother Family Medical History: Cancer General Exam Limitations: no limitations General appearance: alert, in no apparent distress Head exam: Present: atraumatic, normocephalic Eye exam: Present: normal appearance. Absent: scleral icterus, conjunctival injection Neck exam: Present: normal inspection Respiratory exam: Present: normal lung sounds bilaterally. Absent: respiratory distress, wheezes, rales, rhonchi, stridor, accessory muscle use Cardiovascular Exam: Present: regular rate, normal rhythm, normal heart sounds. Absent: systolic murmur, diastolic murmur, rubs, gallop GI/Abdominal exam: Present: soft, tenderness (Mild right upper quadrant tenderness, no rebound or guarding). Absent: distended, guarding, rebound, rigid, mass, pulsatile mass, hernia Extremities exam: Present: normal inspection, normal capillary refill. Absent: pedal edema, calf tenderness Back exam: Present: normal inspection. Absent: CVA tenderness (R), CVA tenderness (L) Neurological exam: Present: alert Skin exam: Present: warm, dry, intact, normal color. Absent: rash Course Vital Signs 04/10/24 04/10/24 04/10/24 14:43 15:41 18:56 Temperature 97.5 F L 98.1 F 97.9 F Pulse Rate 81 74 75 Respiratory 18 19 14 Rate Blood Pressure 202/92 164/88 172/99 O2 Sat by Pulse 96 97 97 Oximetry Medical Decision Making - Medical Decision Making Was pt. sent in by a medical professional or institution (, PA, FIRE CAPTAIN, urgent care, hospital, or correction...) When possible be specific @ -[No] Did you speak to anyone other than the patient for history (EMS, parent, family, police, friend...)? What history was obtained from this source @ -[No] Did you review nursing and triage notes (agree or disagree)? Why? @ -[I reviewed and agree with nursing and triage notes] Were old charts reviewed (outside hosp., previous admission, EMS record, old EKG, old radiological studies, urgent care reports/EKG's, correction records)? Report findings @ -[No old charts were reviewed] Differential Diagnosis (chest pain, altered mental status, abdominal pain women, abdominal pain men, vaginal bleeding, weakness, fever, dyspnea, syncope, headache, dizziness, GI bleed, back pain, seizure, CVA, palpatations, mental health, musculoskeletal)? @ -[Differential Abdominal Pain Women: Appendicitis, Cholecystitis, diverticulosis, ischemic bowel, pancreatitis, hepatitis, UTI, gastroenteritis, AAA, incarcerated hernia, bowel obstruction, constipation, inflammatory bowel, hepatitis, peptic ulcer disease, splenic infarction, perforated viscus, vulvitis, ovarian torsion, PID, kidney stone, placenta abruption, this is not meant to be an all-inclusive list EKG interpreted by me (3pts min.). @ -[As above] X-rays interpreted by me (1pt min.). @ -[None done] CT interpreted by me (1pt min.). @ -[None done] U/S interpreted by me (1pt. min.). @ -[None done] What testing was considered but not performed or refused? (CT, X-rays, U/S, labs)? Why? @ -[None] What meds were considered but not given or refused? Why? @ -[None] Did you discuss the management of the patient with other professionals (professionals i.e. , PA, FIRE CAPTAIN, lab, RT, psych nurse, social media job titles, hospice bereavement coordinator, teacher, dispatch officer, oil field caser)? Give summary @ -[No] Was smoking cessation discussed for >3mins.? @ -[No] Was critical care preformed (if so, how long)? @ -[No] Were there social determinants of health that impacted care today? How? (Homelessness, low income, unemployed, alcoholism, drug addiction, transportation, low edu. Level, literacy, decrease access to med. care, half-way, rehab)? @ -[No] Was there de-escalation of care discussed even if they declined (Discuss DNR or withdrawal of care, Hospice)? DNR status @ -[No] What co-morbidities impacted this encounter? (DM, HTN, Smoking, COPD, CAD, Cancer, CVA, ARF, Chemo, Hep., AIDS, mental health diagnosis, sleep apnea, morbid obesity)? @ -[None] Was patient admitted / discharged? Hospital course, mention meds given and route, prescriptions, significant lab abnormalities, going to OR and other pertinent info. @ -[This patient is an 78-year-old woman here with abdominal pain. The patient's workup not revealing exact etiology. The patient is offered admission but states she is feeling better following her course and at this point does appear stable for further outpatient evaluation. Discussed appropriate further care and follow-up as well as return parameters. Undiagnosed new problem with uncertain prognosis? @ -[No] Drug Therapy requiring intensive monitoring for toxicity (Heparin, Nitro, Insulin, Cardizem)? @ -[No] Were any procedures done? @ -[No] Diagnosis/symptom? @ -[Acute abdominal pain Acute, or Chronic, or Acute on Chronic? @ -[Acute Uncomplicated (without systemic symptoms) or Complicated (systemic symptoms)? @ -[Uncomplicated Side effects of treatment? @ -[No] Exacerbation, Progression, or Severe Exacerbation? @ -[No] Poses a threat to life or bodily function? How? (Chest pain, [place], [place], pneumonia, PE, COPD, DKA, ARF, appy, cholecystitis, CVA, Diverticulitis, Homicidal, Suicidal, threat to staff... and all critical care pts) @ -[No] - Lab Data Result diagrams: 04/10/24 16:12 04/10/24 18:01 Lab Results 04/10/24 04/10/24 04/10/24 Range/Units 16:12 16:12 18:01 WBC 8.0 (3.8-10.6) k/uL RBC 3.95 (3.80-5.40) m/uL Hgb 13.5 (11.4-16.0) gm/dL Hct 40.4 (34.0-46.0) % MCV 102.1 H (80.0-100.0) fL MCH 34.2 (25.0-35.0) pg MCHC 33.5 (31.0-37.0) g/dL RDW 14.9 (11.5-15.5) % Plt Count 298 (150-450) k/uL MPV 10.4 Neutrophils % (Manual) 56 % Band Neuts % (Manual) 1 % Lymphocytes % (Manual) 19 % Monocytes % (Manual) 9 % Eosinophils % (Manual) 14 % Basophils % (Manual) 2 % Neutrophils # (Manual) 4.50 (1.3-7.7) k/uL Lymphocytes # (Manual) 1.52 (1.0-4.8) k/uL Monocytes # (Manual) 0.72 (0-1.0) k/uL Eosinophils # (Manual) 1.12 H (0-0.7) k/uL Basophils # (Manual) 0.16 (0-0.2) k/uL Nucleated RBCs 0 (0-0) /100 WBC Manual Slide Review Performed Hypochromasia Slight Poikilocytosis Slight Macrocytosis Slight Sodium 139 (137-145) mmol/L Potassium 4.0 (3.5-5.1) mmol/L Chloride 107 (98-107) mmol/L Carbon Dioxide 28 (22-30) mmol/L Anion Gap 4 mmol/L BUN 22 H (7-17) mg/dL Creatinine 0.73 (0.52-1.04) mg/dL Est GFR (CKD-EPI)AfAm >90 (>60 ml/min/1.73 sqM) Est GFR (CKD-EPI)NonAf 78 (>60 ml/min/1.73 sqM) Glucose 86 (74-99) mg/dL Calcium 9.2 (8.4-10.2) mg/dL Total Bilirubin 0.9 (0.2-1.3) mg/dL AST 42 H (14-36) U/L ALT 43 H (4-34) U/L Alkaline Phosphatase 105 (38-126) U/L C-Reactive Protein 0.9 (<1.0) mg/dL Total Protein 8.7 H (6.3-8.2) g/dL Albumin 4.2 (3.5-5.0) g/dL Amylase 64 (30-110) U/L Lipase 197 (23-300) U/L Urine Color Colorless Urine Appearance Clear (Clear) Urine pH 6.0 (5.0-8.0) Ur Specific [place] 1.006 (1.001-1.035) Urine Protein Negative (Negative) Urine Glucose (UA) Negative (Negative) Urine Ketones Negative (Negative) Urine Blood Negative (Negative) Urine Nitrite Negative (Negative) Urine Bilirubin Negative (Negative) Urine Urobilinogen <2.0 (<2.0) mg/dL Ur Leukocyte Esterase Negative (Negative) Disposition Clinical Impression: Abdominal pain Disposition: HOME SELF-CARE Condition: Good Instructions (If sedation given, give patient instructions): Abdominal Pain (ED) Prescriptions: Famotidine [Pepcid] 20 mg PO BID #14 tablet Is patient prescribed a controlled substance at d/c from ED?: No Referrals: Jone Maradiaga MD [Primary Care Provider] - 1-2 days Khloe Adam DO [Doctor of Osteopathic Medicine] - 1-2 days
[2024-04-10 16:49] LABS: Appearance,Urine Clear (Clear); Bilirubin,Urine Negative (Negative); Blood,Urine Negative (Negative); Color,Urine Colorless; Glucose,Urine (UA) Negative (Negative); Ketones,Urine Negative (Negative); Leukocyte Esterase,Urine Negative (Negative); Nitrite,Urine Negative (Negative); Protein,Urine Negative (Negative); Specific Gravity,Urine 1.006 (1.001-1.035); Urobilinogen,Urine <2.0 mg/dL (<2.0)
[2024-04-10 16:53] LABS: HCT 40.4 % (34.0-46.0); HGB 13.5 gm/dL (11.4-16.0); Hypochromasia Slight; MCH 34.2 pg (25.0-35.0); MCHC 33.5 g/dL (31.0-37.0); MCV 102.1 fL (80.0-100.0); Macrocytosis Slight; Mean Platelet Volume 10.4; Platelet Count 298 k/uL (150-450); Poikilocytosis Slight; RBC 3.95 m/uL (3.80-5.40); RDW 14.9 % (11.5-15.5)
--- NOTE | 2024-04-10 17:03 | US ---
EXAMINATION TYPE: US abdomen limited DATE OF EXAM: 04/10/2024 COMPARISON: NONE CLINICAL INDICATION: Female, 78 years old with history of attention RUQ; Pain RUQ TECHNIQUE: Grayscale and color Doppler imaging of the right upper quadrant was performed. FINDINGS: EXAM MEASUREMENTS: Liver Length: 12.3 cm Gallbladder Wall: .2 cm CBD: .3 cm Right Kidney: 8.4 x 4.1 x 3.9 cm Pancreas: Tail obscured by overlying bowel gas Liver: Increased attenuation Gallbladder: No stones seen Evidence for sonographic Farah's sign: No CBD: wnl Right Kidney: No hydronephrosis or masses seen IMPRESSION: Unremarkable right upper quadrant ultrasound exam. [facility], , 04/10/2024 5:00 PM
[2024-04-10 18:27] LABS: ALT 43 U/L (4-34); AST 42 U/L (14-36); African American GFR (CKD) >90 (>60 ml/min/1.73 sqM); Albumin 4.2 g/dL (3.5-5.0); Alkaline Phosphatase 105 U/L (38-126); Amylase 64 U/L (30-110); Anion Gap 4 mmol/L; Blood Urea Nitrogen 22 mg/dL (7-17); C Reactive Protein 0.9 mg/dL (<1.0); Calcium 9.2 mg/dL (8.4-10.2); Carbon Dioxide 28 mmol/L (22-30); Chloride 107 mmol/L (98-107); Glucose 86 mg/dL (74-99); Lipase 197 U/L (23-300); Non-African American GFR(CKD) 78 (>60 ml/min/1.73 sqM); Sodium 139 mmol/L (137-145); Total Bilirubin 0.9 mg/dL (0.2-1.3); Total Protein 8.7 g/dL (6.3-8.2)
[2024-04-10 18:34] LABS: Band Neutrophils % 1 %; Basophils # (M) 0.16 k/uL (0-0.2); Eosinophils # (M) 1.12 k/uL (0-0.7); Lymphocytes # (M) 1.52 k/uL (1.0-4.8); Monocytes # (M) 0.72 k/uL (0-1.0); Neutrophils % (M) 56 %; Nucleated Red Blood Cells 0 /100 WBC (0-0); Total Cells Counted 200
[2024-04-10 19:01] VITALS: BP 172/99; PULSE 75; RESP 14; TEMP 97.9
== END 2024-04-10 19:08 | disposition home or self-care (01) ==
LOC: EC 14:41
DX: R10.9 Unspecified abdominal pain (principal); Z87.891 Personal history of nicotine dependence; Z88.2 Allergy status to sulfonamides; Z88.5 Allergy status to narcotic agent; Z88.0 Allergy status to penicillin
CPT/HCPCS: 36415; 76705; 80053; 81003; 82150; 83690; 85025; 86140; 99284

== ENCOUNTER → 2024-08-20 | Outpatient (CLI) | payer MEDICARE ==
--- NOTE | 2024-08-20 16:45 | US ---
EXAMINATION TYPE: US venous doppler duplex LE LT DATE OF EXAM: 08/20/2024 4:33 PM COMPARISON: NONE CLINICAL INDICATION: Female, 78 years old with history of [id number] DVT , R600 LEFT LEG EDEMA; Left lowe r leg pain/edema x 3 days, no hx of DVT, pt is not on blood thinners, Pain TECHNIQUE: The lower extremity deep venous system is examined utilizing real time linear array sonog clint with graded compression, color doppler sonography, and spectral doppler. SIDE PERFORMED: Left FINDINGS: VESSELS IMAGED: Common Femoral Vein Deep Femoral Vein Greater Saphenous Vein * Femoral Vein Popliteal Vein Small Saphenous Vein * Proximal Calf Veins (* superficial vessels) Left Leg: appears negative for DVT, Color Doppler imaging shows patency of the vessels. Spectral wav eforms are within normal limits. Calf vs slightly limited due to edema IMPRESSION: Slightly suboptimal study without acute DVT in the left lower extremity seen. [facility], , 08/20/2024 4:43 PM
== END | disposition home or self-care (01) ==
LOC: RADUSWWP 16:09
PROVIDERS: ATTEND Podiatrist Foot & Ankle Surgery
DX: I82.402 Acute embolism and thrombosis of unspecified deep veins of left lower extremity (principal); R60.0 Localized edema

== ENCOUNTER → 2024-09-13 | Outpatient (CLI) | payer MEDICARE ==
--- NOTE | 2024-09-13 16:30 | XR ---
EXAMINATION TYPE: XR chest 2V DATE OF EXAM: 09/13/2024 4:22 PM COMPARISON: None. CLINICAL INDICATION: Female, 78 years old with history of ACUTE LARYNGITIS: Shortness of breath TECHNIQUE: XR chest 2V views of the chest are obtained. FINDINGS: Scattered senescent parenchymal changes noted. Hyperinflation compatible with COPD. No evidence for infiltrate. No evidence for atelectasis. Heart size is stable. Mediastinal structures are stable and grossly unremarkable. No evidence for hilar prominence. Degenerative changes dorsal spine. IMPRESSION: 1. No evidence for acute pulmonary disease. [facility], , 09/13/2024 4:28 PM
== END | disposition home or self-care (01) ==
LOC: RADXRMAIN 16:05
PROVIDERS: ATTEND Internal Medicine
DX: J04.0 Acute laryngitis (principal)
CPT/HCPCS: 71046

== ENCOUNTER → 2024-09-24 | Outpatient (CLI) | payer MEDICARE ==
--- NOTE | 2024-09-24 13:47 | MM ---
Reason for Exam: Screening (asymptomatic). Last mammogram was performed 1 year(s) and 1 month(s) ago. Patient History: Menarche at age 11. First Full-Term at age 23. Postmenopausal. Patient has history of breast feeding. Benign Excisional Biopsy on the left side. Mother had breast cancer, age 83. Risk Values: Fiorella 5 year model risk: 3.7%. NCI Lifetime model risk: 5.4%. Prior Study Comparison: 08/04/2021 Left Diagnostic Mammogram, [facility]. 05/12/2022 Bilateral MG 3D screening mammo w/cad, [facility]. 08/15/2023 Bilateral MG 3D screening mammo w/cad, [facility]. Tissue Density: The breasts are heterogeneously dense, which may obscure small masses. Findings: Analyzed By CAD. Persistent 2 loosely grouped dystrophic calcifications in the left breast outer aspect and anteriorly. Occasional scattered tiny benign-appearing round chest calcification bilaterally is redemonstrated. There is no suspicious group of microcalcifications or new suspicious mass in either breast. Overall Assessment: Benign, BI-RAD 2 Management: Screening Mammogram of both breasts in 1 year. . Patient should continue monthly self-breast exams. A clinical breast exam by your physician is recommended on an annual basis. This exam should not preclude additional follow-up of suspicious palpable abnormalities. Note on Fiorella scores and lifetime risk: 1. A Fiorella score greater than 3% is considered moderate risk. If this is the case, consider specialist referral to assess eligibility for a risk reducing agent. 2. If overall lifetime risk for the development of breast cancer is 20% or higher, the patient may qualify for future screening with alternating mammogram and breast MRI. [facility], , 09/24/2024 1:44 PM. Electronically signed and approved by: Champ Chanel M.D.
== END | disposition home or self-care (01) ==
LOC: RADMAMWWP 12:07
PROVIDERS: ATTEND Internal Medicine
DX: Z12.31 Encounter for screening mammogram for malignant neoplasm of breast (principal); R92.333 Mammographic heterogeneous density, bilateral breasts; R92.1 Mammographic calcification found on diagnostic imaging of breast; Z78.0 Asymptomatic menopausal state; Z80.3 Family history of malignant neoplasm of breast
CPT/HCPCS: 77063; 77067